=== PATIENT | female | born 1970 | race Hispanic/Latino ===

== ENCOUNTER → 2018-07-06 | Outpatient (CLI) | payer OTHER ==
--- NOTE | 2018-07-15 08:45 | Diagnostic Imaging Report ---
#[id number] - MGSCRBIL #BILATERAL DIGITAL SCREENING MAMMOGRAM WITH CAD: 07/06/2018 CLINICAL: Routine screening. Comparison is made to exam dated: 04/04/2017 mammogram - [facility]. Current study contains 4 films. The tissue of both breasts is heterogeneously dense. This may lower the sensitivity of mammography. Current study was also evaluated with a Computer Aided Detection (CAD) system. There are benign calcifications in both breasts. No significant masses, calcifications, or other findings are seen in either breast. There has been no significant interval change. IMPRESSION: BENIGN There is no mammographic evidence of malignancy. A 1 year screening mammogram is recommended. The patient will be notified by letter of the results. James rios/sunday:07/14/2018 16:20:47 Junior Php Developer: Mojgan PHILLIPS(Kan)(M), [facility] letter sent: Compared to Prior B9 Mammogram BI-RADS: 2 Benign
== END ==
LOC: MAMMO 11:30
PROVIDERS: ATTEND Internal Medicine
DX: Z12.31 Encounter for screening mammogram for malignant neoplasm of breast (principal)
CPT/HCPCS: 77067

== ENCOUNTER → 2018-11-23 | Outpatient (CLI) | payer OTHER ==
--- NOTE | 2018-11-23 15:51 | Diagnostic Imaging Report ---
EXAMINATION: Transvaginal ultrasound. CLINICAL INDICATION: Postmenopausal vaginal bleeding COMPARISON: None available DISCUSSION: Transverse and sagittal transabdominal images were obtained of the pelvis. The uterus is anteflexed and normal in size measuring 8.5 x 5.5 x 6.6 cm. The endometrial stripe is homogeneous, normal in thickness and measures 0.4 centimeters. 2 round heterogeneous lesions are identified within the myometrium. A hypoechoic myometrial lesion measures 2.7 cm in diameter, while a subserosal hypoechoic lesion measures 3.3 cm in greatest dimension. An additional echogenic focus with posterior acoustic shadowing measures 6 mm and may represent a degenerated lesion. The ovaries are normal in size and echogenicity. The right ovary measures 2.2 x 1.4 x 2.4 centimeters. The left ovary measures 1.3 x 1.6 x 1.6 centimeters. No free fluid or pelvic masses are seen. IMPRESSION: Multiple uterine fibroids, one of which is likely degenerated. Pelvic MRI may be of benefit for further characterization. Signed by: Dr. Rajat Navarrete M.D. on 11/23/2018 3:47 PM
== END ==
LOC: US 12:12
PROVIDERS: ATTEND Internal Medicine
DX: N95.0 Postmenopausal bleeding (principal)
CPT/HCPCS: 76856